=== PATIENT | female | born 1955 | race Caucasian/White ===

== ENCOUNTER → 2022-04-11 | Day surgery (SDC) | payer OTHER ==
[~2022-04-11] VITALS: Ht 167.6 cm; Wt 82.5 kg
[~2022-04-11] MED LIST: BENZTROPINE MESY1 MG PO; CALCIUM CARB PO; COREG 6.25MG6.25 MG PO; HALDOL DEC100 MG/1 M IM; LEVEMIR FL100 UNIT/1 SC; LIPITOR40 MG PO; LISINOPRIL20 MG PO; NORVASC5 MG PO; PRILOSEC20 MG PO; ROBAXIN500 MG PO; SEROQUEL200 MG PO; SYNTHROID50 MCG PO; VICTOZA 2-0.6 MG/0.1 SC; VITAMIN D3 PO
[2022-04-11 09:04] LABS: HCT 32.8 % (37.0-47.0); MCH 26.6 pg (25.0-31.0); MCHC 33.5 g/dL (32.0-36.0); MCV 79.4 fL (78.0-100.0); MPV 8.6 fL (6.0-9.5); RBC 4.13 M/uL (4.20-5.40); WBC 6.8 K/uL (4.0-10.5)
[2022-04-11 09:23] LABS: ALBUMIN 3.7 g/dL (3.4-5.0); BILIRUBIN - TOTAL 0.3 mg/dL (0.2-1.0); BUN/CREAT RATIO (CALC) 14.6 RATIO; CREATININE 0.41 mg/dL (0.51-0.95); POTASSIUM 4.2 mmol/L (3.5-5.1); TOTAL PROTEIN 7.7 g/dL (6.4-8.2)
== END | disposition home or self-care (01) ==
LOC: FAS 08:32
PROVIDERS: Surgery
DX: D50.0 Iron deficiency anemia secondary to blood loss (chronic) (principal); K29.50 Unspecified chronic gastritis without bleeding; K31.7 Polyp of stomach and duodenum; K57.30 Diverticulosis of large intestine without perforation or abscess without bleeding; E78.5 Hyperlipidemia, unspecified; I10 Essential (primary) hypertension; E11.9 Type 2 diabetes mellitus without complications; E03.9 Hypothyroidism, unspecified; Z80.0 Family history of malignant neoplasm of digestive organs; Z86.010 Personal history of colon polyps
CPT/HCPCS: 36415; 80053; J2704; J7120